=== PATIENT | male | born 2000 | race African-American/Black ===

== ENCOUNTER 2025-06-03 19:59 | Emergency (ER) | payer OTHER ==
[~2025-06-03] VITALS: Ht 170.2 cm; Wt 89.7 kg
[2025-06-03 20:36] VITALS: BP 156/70; TEMP 98.9; O2SAT 98
[2025-06-03] MEDS ORDERED: ISOVUE-370 76% 100 ML VIAL As Ordered ONE (20:36)
[2025-06-03 21:04] LABS: BASO # 0.1 10^3/uL (0.0-0.2); BASO % 0.9 % (0.0-1.0); EOS # 0.2 10^3/uL (0.0-0.5); EOS % 2.0 % (0.0-3.0); LYMPH # 3.3 10^3/uL (1.5-5.0); LYMPH % 38.0 % (24.0-44.0); MONO # 0.9 10^3/uL (0.0-0.8); MONO % 10.5 % (2.0-8.0); NEUTROPHILS # 4.1 10^3/uL (1.5-8.5); NEUTROPHILS % 48.5 % (36.0-66.0); PLATELET COUNT, AUTOMATED 356 10^3/uL (150-450)
[2025-06-03 21:17] LABS: INR 0.92
[2025-06-03] MEDS: NS (Normal Saline) 0.9% 1,000 ML IV ONE (21:28)
[2025-06-03] MEDS: dexAMETHasone 4 MG/ML 1 ML VIAL IV ONE (21:29)
[2025-06-03] MEDS: ACETAMINOPHEN *IV* 1,000 MG in IV 1 EA IV ONE (21:34)
[2025-06-03] MEDS: KETOROLAC 30 MG/ML 1 ML VIAL IV ONE (21:34)
[2025-06-03 21:43] LABS: CALCIUM LEVEL 9.2 MG/DL (8.5-10.1); CARBON DIOXIDE LEVEL 30.0 MMOL/L (20-31); CHLORIDE LEVEL 104.0 MMOL/L (98-107); CREATININE FOR GFR 1.27 MG/DL (0.70-1.30); GLOMERULAR FILTRATION RATE 81.9 (>60); MAGNESIUM LEVEL 1.8 MG/DL (1.8-2.4); POTASSIUM SERUM 3.9 MMOL/L (3.5-5.1); SODIUM LEVEL 141.0 MMOL/L (136-145)
[2025-06-03] MEDS: MAG SULF 1GM/100ML (MAG RUN) 1 GM in IV 1 EA IV ONE (21:59)
[2025-06-03] MEDS ORDERED: PRED10TA2 PO (22:58)
[2025-06-03] MEDS ORDERED: VALA500T5 PO (22:58)
[2025-06-03] MEDS ORDERED: PRED20TA PO (22:58)
[2025-06-03 23:14] VITALS: O2SAT 97
[2025-06-03 23:15] VITALS: BP 115/58
[2025-06-07 22:04] LABS: LYME TOTAL ANTIBODY CIA 1.65 Index (<=0.90)
[2025-06-08 01:07] LABS: LYME AB IGG BY CIA <= 0.90 Index (<=0.90); LYME AB IGM BY CIA <= 0.90 Index (<=0.90)
== END 2025-06-03 23:26 | disposition home or self-care (01) ==
LOC: M ED 19:59
DX: G51.0 Bell's palsy (principal); R00.1 Bradycardia, unspecified; Z79.52 Long term (current) use of systemic steroids; Z79.899 Other long term (current) drug therapy
CPT/HCPCS: 70450; 70496; 70498; 71045; 80047; 80048; 83735; 85025; 85610; 85730; 86618; 93005; 93041; 94760; 96365; 96366; 96367; 96375; 99285; J0134; J1100; J1885; J2765; J3475; Q9967

== ENCOUNTER 2025-06-08 12:50 | Emergency (ER) | payer OTHER ==
[~2025-06-08] VITALS: Ht 170.2 cm; Wt 91.1 kg
[~2025-06-08 12:50] MED LIST: PRED10TA2 PO; PRED20TA PO; VALA500T5 PO
[2025-06-08 13:08] VITALS: BP 139/65; TEMP 97.9; O2SAT 99
[2025-06-08] MEDS: KETOROLAC 30 MG/ML 1 ML VIAL IM ONE (14:33)
== END 2025-06-08 15:06 | disposition home or self-care (01) ==
LOC: M ED 12:50
DX: R51.9 Headache, unspecified (principal); Z90.49 Acquired absence of other specified parts of digestive tract; Z79.52 Long term (current) use of systemic steroids; Z79.899 Other long term (current) drug therapy
CPT/HCPCS: 96372; 99283; J1885

== ENCOUNTER → 2025-06-14 | Outpatient (CLI) | payer OTHER ==
[2025-06-20 06:03] LABS: LYME TOTAL ANTIBODY CIA 1.27 Index (<=0.90)
[2025-06-20 08:37] LABS: LYME AB IGG BY CIA <= 0.90 Index (<=0.90); LYME AB IGM BY CIA <= 0.90 Index (<=0.90)
== END ==
LOC: M PLALAB 15:56
PROVIDERS: ATTEND Psychiatry & Neurology Neurology
DX: A69.20 Lyme disease, unspecified (principal); G51.0 Bell's palsy; R51.9 Headache, unspecified